=== PATIENT | male | born 1950 | race Caucasian/White ===

== ENCOUNTER 2022-01-09 08:56 | Emergency (ER) | payer MEDICARE, SELFPAY ==
[2022-01-09 08:56] VITALS: BP 124/83; PULSE 80; RESP 16; TEMP 36.6; O2SAT 98; BMI 34.2
--- NOTE | 2022-01-09 09:01 | EX.ED.DYSGE1 ---
HPI <TODD Grimes - Last Filed: 01/09/22 09:24> History of Present Illness Chief Complaint: Wound Narrative Narrative: Patient was stepping out of his truck this morning and the running board broke and cut his right patel. It has been bleeding intermittently. He is not on blood thinners. He has no weakness, numbness or tingling of the lower extremity. Tetanus was updated in 2020. [facility] <TODD Grimes - Last Filed: 01/09/22 09:24> [facility] Medical History (Updated 01/09/22 @ 10:16 by Larissa Beltran) Gout Hypertension Home Medications calcium 600 mg-D3 800 unit-mag11 50 ex-jhtx-jzlckk-roverto-s.borat tablet 1 tab PO BID 01/09/22 [History Last Taken Unknown] fluticasone propionate 110 mcg/actuation HFA aerosol inhaler 2 inh inhalation DAILY 01/09/22 [History Last Taken Unknown] hydrochlorothiazide 12.5 mg tablet 12.5 mg PO DAILY 01/09/22 [History Last Taken Unknown] lisinopril 40 mg tablet 40 mg PO DAILY 01/09/22 [History Last Taken Unknown] omega 6-iyw-lgi-fish oil 900 mg-1,400 mg capsule,delayed release 1,000 cap PO DAILY 01/09/22 [History Last Taken Unknown] omeprazole 20 mg capsule,delayed release 20 mg PO DAILY 01/09/22 [History Last Taken Unknown] Allergy/AdvReac Type Severity Reaction Status Date / Time No Known Allergies Allergy Verified 01/09/22 09:00 Social History Smoking Status: Never smoker ROS <TODD Grimes - Last Filed: 01/09/22 09:24> ROS ED ROS Narrative Constitutional: Negative for fever, chills, malaise. Eyes: Negative for visual change. ENT: Negative for sore throat, rhinorrhea. CVS: Negative for palpitations, chest pain. Respiratory: Negative for shortness of breath, cough. GI: Negative for abdominal pain, nausea, vomiting. : Negative for dysuria, hematuria or frequency. Neuro: Negative for headache, motor/sensory dysfunction. Skin: Positive for wound. Musc: Negative for joint pain, swelling, trauma. Heme: Negative for easy bruising, bleeding, lymphadenopathy. EXAM <TODD Grimes - Last Filed: 01/09/22 09:24> Physical Exam Narrative Exam Narrative: CONST: Patient sitting in no acute distress. EYES: Normal inspection. NECK: Normal inspection. RESP: No respiratory distress, CTAB. CVS: Regular rate and rhythm, no murmur, no gallop. SKIN: 3 cm linear vertical laceration right mid patel, no foreign body or bleeding. EXTREMITIES: Normal appearance, no bony tenderness of RLE, 2+ PT pulse. NEURO: Oriented x4. PSYCH: Normal affect. Const Vital Signs: 01/09/22 08:56 Temperature 97.8 F Temperature Source Oral Pulse Rate 80 Respiratory Rate 16 Blood Pressure 124/83 H Blood Pressure Mean 96 Pulse Ox 98 Oxygen Delivery Method Room Air <Dr. Alejo Reid MD - Last Filed: 01/09/22 12:02> Physical Exam Const Vital Signs: 01/09/22 08:56 Temperature 97.8 F Temperature Source Oral Pulse Rate 80 Respiratory Rate 16 Blood Pressure 124/83 H Blood Pressure Mean 96 Pulse Ox 98 Oxygen Delivery Method Room Air [facility] <TODD Grimes - Last Filed: 01/09/22 09:24> [facility] Narrative Medical decision making narrative: Patient has a 3 cm laceration to his right patel. There is no bony tenderness and extremity is neurovascularly intact. 3 cm laceration was anesthetized with 3 cc of 1% lidocaine with epinephrine. It was thoroughly irrigated with sterile saline and prepped and draped in sterile fashion and closed with 3 simple interrupted sutures of 4-0 Ethilon. His tetanus is up-to-date. We discussed wound care and suture removal in 8 to 12 days and to return if signs of infection develop. He was discharged in stable condition. <Dr. Alejo Reid MD - Last Filed: 01/09/22 12:02> [facility] Narrative Medical decision making narrative: Patient has a 3 cm laceration to his right patel. There is no bony tenderness and extremity is neurovascularly intact. 3 cm laceration was anesthetized with 3 cc of 1% lidocaine with epinephrine. It was thoroughly irrigated with sterile saline and prepped and draped in sterile fashion and closed with 3 simple interrupted sutures of 4-0 Ethilon. His tetanus is up-to-date. We discussed wound care and suture removal in 8 to 12 days and to return if signs of infection develop. He was discharged in stable condition. I have personally performed a face to face assessment of the patient and have reviewed the LINUS Note. I performed a substantive portion of the visit including all aspects of the following. My thomas findings include: History is remarkable for blunt injury anterior mid right leg. He was exiting his truck. The side foot rail gave way. He sustained laceration to the anterior leg. He denies paresthesia, anesthesia medics. Exam is remarkable for laceration with contused tissue. There is no tenderness over the tibia. There is no Novast compromise. Medical Decision Making laceration will require repair. Repair was performed by physician tutoring assistant. Other additions or changes: None Discharge Plan Triage Chief Complaint: Wound ED Midlevel Provider: Stephanie Sims ED Provider: Alejo Reid Dx/Rx/DC Orders Clinical Impression: Laceration of right lower extremity Instructions: ED Laceration: All Closures Prescriptions: No Action omeprazole [Prilosec] 20 mg Capsule,Delayed Release(Dr/Ec) 20 mg PO DAILY lisinopril 40 mg Tablet 40 mg PO DAILY fluticasone propionate 110 mcg/actuation Hfa Aerosol Inhaler 2 inh INHALATION DAILY hydrochlorothiazide 12.5 mg Tablet 12.5 mg PO DAILY [place] 3 Fish Oil 900-1,400 mg Capsule,Delayed Release(Dr/Ec) 1,000 cap PO DAILY [id number] 600 mg calcium- 800 unit-50 mg Tablet 1 tab PO BID Primary Care Provider: DOUGLAS MAKI Activity Restrictions/Additional Instructions: You can shower as normal and keep the area clean. See your doctor in 8-10 days to have sutures removed. Disposition Disposition: Home, Self Care Discharge Date/Time: 01/09/22 10:18
== END 2022-01-09 10:18 | disposition home or self-care (01) ==
LOC: ED 09:35
PROVIDERS: Emergency Provider Emergency Medicine; Visit Provider Emergency Medicine
DX: S81.811A Laceration without foreign body, right lower leg, initial encounter (principal); I10 Essential (primary) hypertension; Z79.899 Other long term (current) drug therapy; X58.XXXA Exposure to other specified factors, initial encounter
CPT/HCPCS: 12002; 99285